=== PATIENT | male | born 1960 | race Caucasian/White ===

== ENCOUNTER 2019-04-15 11:47 | Day surgery (SDC) | payer BC ==
[2019-04-12 14:34] VITALS: BMI 34.9
--- NOTE | 2019-04-15 10:22 | OP ---
Operative Note - Note: Operative Date: 04/15/19 Pre-Operative Diagnosis: Right shoulder ? Post-Operative Diagnosis: Same as Pre-op Surgeon: Sesar Grimes Fire Prevention Chief: Lucretia Pro Anesthesia: Fractional Operative Report Dictated: Yes
[2019-04-15] MEDS ORDERED: MIDAZOLAM HCL 2 MG/2 ML SINGLE DOSE VIAL ONE (11:53)
[2019-04-15] MEDS ORDERED: DEXAMETHASONE SOD PHOSPHATE/PF 10 MG/ML SDV ONE (11:53)
[2019-04-15] MEDS ORDERED: ROPIVACAINE HCL 0.5% 30ML VIAL ONE (11:54)
[2019-04-15] MEDS ORDERED: PROPOFOL 20 ML ONE ×3 (13:02→17:07)
[2019-04-15] MEDS ORDERED: DEXAMETHASONE SOD PHOSPHATE 4 MG/1 ML VIAL ONE ×2 (13:03→13:10)
[2019-04-15] MEDS ORDERED: SODIUM CHLORIDE 0.9% P/F 10 ML VIAL IJ ONE (13:03)
[2019-04-15] MEDS ORDERED: KETOROLAC TROMETHAMINE 30 MG/1 ML VIAL ONE (13:03)
[2019-04-15] MEDS ORDERED: LIDOCAINE HCL/PF 2% SDV 5ML VIAL ONE ×2 (13:03→13:10)
[2019-04-15] MEDS ORDERED: ceFAZolin SODIUM 1 GM VIAL ONE (13:03)
[2019-04-15] MEDS ORDERED: ONDANSETRON 4 MG/2 ML VIAL ONE ×2 (13:03→13:10)
[2019-04-15] MEDS ORDERED: ROCURONIUM BROMIDE 50 MG/5 ML SYRINGE ONE ×2 (15:41→17:09)
[2019-04-15] MEDS ORDERED: LIDOCAINE 1%/EPI 1:100000 (20 ML MULTI DOSE VIAL) ONE (16:12)
[2019-04-15] MEDS ORDERED: LIDOCAINE 1%/EPI 1:100000 (20 ML MULTI DOSE VIAL) INF ONE (16:15)
[2019-04-15] MEDS ORDERED: EPINEPHrine 1:1,000 1 MG/1 ML - 30ML VIAL (INJECTION) ONE (17:14)
[2019-04-15] MEDS ORDERED: GLYCOPYRROLATE 0.2 MG/1 ML VIAL ONE (17:17)
[2019-04-15] MEDS ORDERED: NEOSTIGMINE METHYLSULFATE 0.5 MG/ML - 10 ML MDV ONE (17:17)
[2019-04-15] MEDS ORDERED: oxyCODONE HCL 5 MG TABLET PO PRN ×2 (18:21)
[2019-04-15] MEDS ORDERED: ACETAMINOPHEN 325 MG TABLET (FP) PO PRN (18:21)
[2019-04-15] MEDS ORDERED: ONDANSETRON 4 MG/2 ML VIAL IVPUSH PRN (18:21)
[2019-04-15] MEDS ORDERED: LACTATED RINGERS SOLUTION 1,000 ML IV SCH (18:30)
--- NOTE | 2019-04-15 18:31 | OP ---
DATE OF OPERATION: 04/15/2019 PREOPERATIVE DIAGNOSIS: Left shoulder osteoarthritis, rotator cuff tear, periarticular cyst. POSTOPERATIVE DIAGNOSIS: Left shoulder osteoarthritis, rotator cuff tear, periarticular cyst. PROCEDURE: Left shoulder arthroscopy with debridement of the joint and subacromial space, distal clavicle excision, and periarticular cyst open excision. ANESTHESIA: Regional plus general.. POSTOPERATIVE CONDITION: Stable. COMPLICATIONS: None. SURGEON: Sesar Grimes MD SANITATION DIRECTOR: Lucretia Pro, physician catalog library assistant, whose skilled full assistance was necessary for the safe and timely performance of this procedure. Ms. Pro was able to provide limb positioning, retraction, assist in driving the camera as well as manipulating arthroscopic instruments. INDICATIONS: This is a pleasant gentleman who has been suffering from left shoulder pain as well as a very large periarticular cyst, which had been aspirated multiple times. Patient is mainly having pain about the cyst, and therefore, was indicated for distal clavicle excision to remove the arthritis about the area of the cyst, cyst excision as well as a generalized debridement to help improve this condition of arthritis. We reviewed the option of nonoperative care with continued aspiration. We reviewed risks in detail including bleeding, infection, neurovascular injury, need for further surgery, postoperative pain and stiffness, cyst recurrence, need for a more definitive procedure for his cuff tear and arthritis such as superior capsular reconstruction or reverse total shoulder replacement. I reviewed medical risks such as heart attack, stroke, DVT, PE, and . I addressed the use of perioperative and DVT prophylaxis. I addressed all the patient's questions and concerns. He voiced understanding and elected to proceed. DESCRIPTION OF PROCEDURE: Patient was brought to the operating room where general anesthesia was administered. He previously had been given a block in the preoperative holding area. He was then placed in the beach chair position careful to pad all bony prominences. Care was used to maintain the cervical spine in neutral positioning. The left upper extremity was then prepped and draped in the usual sterile fashion. A preoperative dose of antibiotics was given, and the usual time-out procedure was performed. The bony landmarks throughout the shoulder were then marked out. Incision was now planned out over the cyst itself, which was approximately 5 cm round. The incision for the cyst was now injected subcutaneously with 1% lidocaine with epinephrine. A 15 blade was now used to incision about the cyst. Electrocautery was used to maintain hemostasis. Blunt spreading was carried out around the cyst to free it from the surrounding tissues and was able to be passed out of the wound. At this point, the stalk was trimmed, and the cyst was decompressed. The body of the cyst was now excised. A curette was used to roughen the aperture at the base of the cyst. Attention was now turned to the arthroscopic portion of the procedure. A moist sponge was placed in the area of the cyst. A posterior portal was now established with an 11 blade. The arthroscope was passed into the glenohumeral joint. Here there was moderate glenoid degenerative change noted. There was diffuse tearing of the glenoid labrum. Anterior portal was now established under spinal needle localization. After establishing an anterior portal, the labrum was debrided utilizing mechanical shaver. The subscapularis was inspected and found to be intact. The superior and infraspinatus were noted to be completely avulsed off the greater tuberosity and significantly retracted. The frayed edges of the rotator cuff were debrided. The biceps was inspected and found to be in remarkably good condition considering the rest of the appearance of the shoulder with diffuse fraying throughout the subacromial space. The arthroscope was now passed formally into the subacromial space. Here, the undersurface of the acromion was debrided utilizing a mechanical shaver. Electrocautery was used to expose the acromioclavicular joint, which was located by spinal needle localization. The joint now visualized. A bur was used initially from the lateral portal to shave the undersurface of the acromion back by approximately 1 cm. A 2nd portal was now established utilizing a previous incision toward the cyst excision more anteriorly, and the remainder of decompression was completed. The camera was positioned anteriorly through that portal at the end to ensure that complete decompression was achieved. At this time, the scope was removed. A 0 Vicryl suture was placed at the base of the cyst in the AC joint capsule. In addition, the portal site was closed using No. 1 Vicryl as well. Subcutaneous tissue was now approximated using 3-0 Vicryl. The skin was closed using 3-0 nylon suture. The portals were sutured using 3-0 nylon as well. Sterile dressings were placed. Patient was extubated and transferred to recovery room in stable condition. Tonio [id number]
[2019-04-15 19:07] VITALS: TEMP 98.6
[2019-04-15 19:59] VITALS: BP 132/85; PULSE 93
--- NOTE | 2019-04-21 18:12 | PATH ---
Surgical Pathology Report Patient Name: CARLEY CUMMINGS Med. Rec. #: [id number] /Age/Gender: 1960 (Age: 58) / M Account: [id number] Location: [facility] AM[facility] Taken: 04/15/2019 Received: 04/15/2019 Reported: 04/21/2019 Physicians: Sesar Grimes M.D. Specimen(s) Received LEFT SHOULDER GANGLION CYST Clinical History Left shoulder osteoarthritis Final Diagnosis LEFT SHOULDER GANGLION CYST, EXCISION: CONSISTENT WITH GANGLION CYST. Electronically Signed Han Parsons M.D. Gross Description Received in formalin labeled "left shoulder ganglion cyst," is a 2.2 x 2.0 x 1.4 cm rodas thomas, focally disrupted cystic structure. Sectioning reveals clear mucinous material within the lumen. [employer] sections are submitted in one cassette. /04/19/2019 [facility]04/19/2019
== END 2019-04-15 19:50 | disposition home or self-care (01) ==
LOC: FASU 11:47
PROVIDERS: ATTEND Orthopaedic Surgery Sports Medicine
PROC: 0RBJ4ZZ Excision of Right Shoulder Joint, Percutaneous Endoscopic Approach (ICD-10-PCS; 2019-04-15)
PROC: 0PB94ZZ Excision of Right Clavicle, Percutaneous Endoscopic Approach (ICD-10-PCS; 2019-04-15)
PROC: 0KB50ZZ Excision of Right Shoulder Muscle, Open Approach (ICD-10-PCS; principal; 2019-04-15 16:15)
DX: M71.312 Other bursal cyst, left shoulder (principal); M24.111 Other articular cartilage disorders, right shoulder; M19.012 Primary osteoarthritis, left shoulder; M75.102 Unspecified rotator cuff tear or rupture of left shoulder, not specified as traumatic
CPT/HCPCS: 82962; 88304-TC; 94760